=== PATIENT | female | born 1980 | race Caucasian/White ===

== ENCOUNTER 2025-02-07 01:17 | Day surgery (SDC) | payer OTHER, SELFPAY ==
[2025-01-27 15:43] VITALS: BMI 30.7
--- NOTE | 2025-02-07 06:31 | P.PNAN_ITS ---
Anes - Initial Pre Proc Eval Procedure: Operation Date: 02/07/25 08:00 Proposed Procedures p Screening Colonoscopy - Zion Akhtar DO Date/Time: 02/07/25 06:31 Surgeon: Zion Akhtar DO Pre Op Diagnosis: screening for malignant neoplasm of colon Patient Data Age: 45 Gender: F Height: 1.65 m Weight: 83.9 kg Allergies Allergy/AdvReac Type Severity Reaction Status Date / Time bee pollen Allergy Severe Anaphylactic Verified 01/27/25 15:40 Shock Home Medications Medication Instructions Recorded Confirmed Type escitalopram oxalate 20 mg tablet 20 mg PO DAILY #90 tabs 10/25/24 01/27/25 Rx semaglutide (weight loss) 1.7 1.7 mg (0.75 mL) subcut WEEKLY #3 01/24/25 01/27/25 Rx mg/0.75 mL subcutaneous pen mL injector ([employer]) Patient hx anesthesia problems: none Family hx anesthesia problems: none Results Review: All pre-operative results and documents have been reviewed as part of the pre- operative evaluation. [facility] Past Medical History Medical History Anxiety Screening for breast cancer Remove/insert IUD mirena iud insertion 2005/ removal and reinsert 2009/ removal 2014 High cholesterol HSV-1 infection Anxiety and depression Surgical History Surgical History H/O breast augmentation lift and implants H/O gynecological procedure mirena insertion 2005 Mirena removal/reinsertion 2009 Mirena removal 2014 Mirena insertion 2016 H/O carpal tunnel repair History of robot-assisted laparoscopic hysterectomy (08/20/18) RATLH uterine prolapse, uteromegaly History of bladder suspension procedure bladder sling Family History Family History Mother Heart disease Father Heart disease Social History Social History Smoking packs per day: 1 Smoking cigarettes per day: 20.0 Years smoked: 20 Smoking pack-years: 20.00 Smoking status: Former smoker Tobacco type: e-cigarettes/vaping Second hand tobacco smoke exposure: No Alcohol intake: current Drinks per week: 12 Alcohol use details: Beer 12 on weekends Substance use: current Substance use type: does not use Do You Feel Safe in your Home?: Yes Lack of Transportation: No Lack of Food: Never True Current Housing: I Have Housing Concerned About Future Housing: No Difficulty Paying Gas/Electric Bills: No Difficulty Paying for Meds: No Currently Unemployed: No Education: High School Diploma/GED Difficulty w/ Childcare or Family Care: No Living arrangements: with family Occupation/Education: occupation Additional occupation/education comments: [employer]. Gender identity (if verbalized by the patient): Female Sexual Orientation (if Verbalized by the Patient): Straight or Heterosexual Agree to blood products: Yes Anes - Eval Final PreProcedure Day of Procedure 02/07/25 06:31 Patient weight: obese Heart: regular rate and rhythm Lungs: clear to auscultation Airway: Mallampati scale class II Neurological: alert and oriented Last oral intake: >/= 8 hours ASA classification: III Emergent: no Anesthetic plan: proceed Anesthesia type and monitoring: general GIVS and standard monitoring Results Review: All pre-operative results and documents have been reviewed as part of the pre- operative evaluation. Informed Consent: The patient's anesthetic plan and its attendant risks and benefits were discussed with the patient/family/POA. Questions were solicited and answers provided to the satisfaction of the patient/family/POA.
[2025-02-07 06:36] VITALS: BP 118/58; PULSE 77; RESP 18; TEMP 36.2; O2SAT 100; BMI 30.5
[2025-02-07] MEDS: LACTATED RINGERS 1,000 ML 150 ML IV CONT (06:46)
--- NOTE | 2025-02-07 07:49 | PM.IMHP ---
H&P: HPI History of Present Illness Date/Time: 02/07/25 07:49 Chief Complaint: screening for colorectal cancer Narrative: this is a 45-year-old woman who presents for colonoscopy. She has never had a colonoscopy before. She denies any hematochezia or melena. She denies any family history of colon cancer. Review of Systems Review of Systems: All systems reviewed & are unremarkable except as noted in HPI and below Constitutional: Constitutional: Denies chills, Denies fever(s), Denies headache(s) and Denies weight loss Eyes: Eyes: Denies change in vision ENT: Denies dizziness, Denies headache(s), Denies neck mass and Denies throat swelling Cardiovascular: Cardiovascular: Denies chest pain, Denies lightheadedness and Denies dyspnea Respiratory: Respiratory: Denies cough, Denies dyspnea and Denies wheezing Gastrointestinal: Gastrointestinal: Denies abdominal pain, Denies change in bowel habits, Denies nausea and Denies vomiting Genitourinary: Genitourinary: Denies hematuria and Denies dysuria Musculoskeletal: Musculoskeletal: Reports as per HPI Integumentary/Breasts: Skin/Breast: Reports as per HPI Neurologic: Denies dizziness and Denies headache(s) Allergic/Immunologic: Allergic/Immunologic: Denies throat swelling and Denies wheezing PMF Past Medical History Medical History Anxiety Screening for breast cancer Remove/insert IUD mirena iud insertion 2005/ removal and reinsert 2009/ removal 2014 High cholesterol HSV-1 infection Anxiety and depression Surgical History Surgical History H/O breast augmentation lift and implants H/O gynecological procedure mirena insertion 2005 Mirena removal/reinsertion 2009 Mirena removal 2014 Mirena insertion 2016 H/O carpal tunnel repair History of robot-assisted laparoscopic hysterectomy (08/20/18) RATLH uterine prolapse, uteromegaly History of bladder suspension procedure bladder sling Family History Family History Mother Heart disease Father Heart disease Social History Social History Smoking packs per day: 1 Smoking cigarettes per day: 20.0 Years smoked: 20 Smoking pack-years: 20.00 Smoking status: Former smoker Tobacco type: e-cigarettes/vaping Second hand tobacco smoke exposure: No Alcohol intake: current Drinks per week: 12 Alcohol use details: Beer 12 on weekends Substance use: current Substance use type: does not use Do You Feel Safe in your Home?: Yes Lack of Transportation: No Lack of Food: Never True Current Housing: I Have Housing Concerned About Future Housing: No Difficulty Paying Gas/Electric Bills: No Difficulty Paying for Meds: No Currently Unemployed: No Education: High School Diploma/GED Difficulty w/ Childcare or Family Care: No Living arrangements: with family Occupation/Education: occupation Additional occupation/education comments: [employer]. Gender identity (if verbalized by the patient): Female Sexual Orientation (if Verbalized by the Patient): Straight or Heterosexual Agree to blood products: Yes Meds Home Medications and Allergies Home Medications Medication Instructions Recorded Confirmed Type escitalopram oxalate 20 mg tablet 20 mg PO DAILY #90 tabs 10/25/24 02/07/25 Rx semaglutide (weight loss) 1.7 1.7 mg (0.75 mL) subcut WEEKLY #3 01/24/25 02/07/25 Rx mg/0.75 mL subcutaneous pen mL injector ([employer]) Allergies Allergy/AdvReac Type Severity Reaction Status Date / Time bee pollen Allergy Severe Anaphylactic Verified 02/07/25 06:35 Shock Vital Signs Vital Signs - 24 hr 02/07/25 06:36 Temperature 97.1 F L Pulse Rate 77 Respiratory Rate 18 Blood Pressure 118/58 L Pulse Oximetry 100 Oxygen Delivery Room Air Exam Const: General: no acute distress and alert Orientation/consciousness: patient oriented x3 HENMT: Head: normocephalic and atraumatic Ears: hearing grossly normal bilaterally Face/Nose/Sinus: Normal nares present Mouth: Yes Normal oral and palatal mucosa present Eyes: Periorbital: periorbital findings normal Sclera: sclerae normal EOM: EOMs intact bilaterally Neck: Neck: normal visual inspection, no lymphadenopathy and trachea midline Chest: Chest palpation & inspection: normal inspection of the chest Resp: Effort & Inspection: normal respiratory effort Auscultation: clear to auscultation bilaterally Cardio: Jugular venous distension: no JVD Rate: regular rate Rhythm: regular rhythm Heart sounds: S1 normal heart sound present and S2 normal heart sound present Peripheral pulses: Peripheral pulses 2+ throughout GI: Inspection: normal to inspection GI Palp: Yes Soft to palpation, No Tenderness to palpation present (GI), No Guarding due to palpation present (GI) and No Rebound tenderness present Percussion: Yes normal to percussion Auscultation: normal bowel sounds : General: Yes no CVA tenderness Back/Spine/Pelvis: Back: no CVA tenderness Neuro: General: patient oriented x3, no focal motor deficits and CN's II-XI intact bilaterally Cognition (Neuro): normal cognition Speech: normal speech Motor exam (neuro): 5/5 motor strength present throughout Extrem: General: capillary refill normal and no clubbing, cyanosis or edema Assessment and Plan Assessment and plan (1) Screening for colon cancer: Code(s): Z12.11 - Encounter for screening for malignant neoplasm of colon Status: Acute Assessment and Plan: I have recommended colonoscopy. I have discussed the procedure, risks, benefits, and alternatives. Questions were answered. Patient is agreeable to proceed.
[2025-02-07 08:16] VITALS: BP 150/65; PULSE 81; RESP 18; O2SAT 100
[2025-02-07 08:26] VITALS: BP 124/86; PULSE 74; RESP 21; O2SAT 100
[2025-02-07 08:36] VITALS: BP 149/60; PULSE 78; RESP 20; O2SAT 100
== END 2025-02-07 08:47 | disposition home or self-care (01) ==
PROVIDERS: PCP Nurse Practitioner Adult Health; Visit Provider Surgery
PROC: 0DJD8ZZ Inspection of Lower Intestinal Tract, Via Natural or Artificial Opening Endoscopic (ICD-10-PCS; CPT 45378; principal; 2025-02-07 08:00)
DX: Z12.11 Encounter for screening for malignant neoplasm of colon (principal); K63.5 Polyp of colon; Z87.891 Personal history of nicotine dependence; E66.9 Obesity, unspecified; Z68.30 Body mass index [BMI] 30.0-30.9, adult
CPT/HCPCS: 45380; 88305; J2003; J2704; J7120